=== PATIENT | female | born 1965 | race Caucasian/White ===

== ENCOUNTER 2017-07-02 10:41 | Emergency (ER) | payer BC ==
--- NOTE | 2017-07-02 13:35 | UC ---
Lower Extremity/Ankle HPI - HPI Summary HPI Summary: fell at 10:30 this am twisting right foot pain in lateral foot, ankle and distal fibula - History of Current Complaint Chief Complaint: UCLowerExtremity Stated Complaint: FOOT INJURY Time Seen by Provider: 07/02/17 13:29 Hx Obtained From: Patient Hx Last Menstrual Period: Currently menstruatubg ?: No Onset/Duration: Sudden Onset, Lasting Hours Severity Initially: Moderate Severity Currently: Moderate Pain Intensity: 8 Aggravating Factor(s): Standing, Ambulation Alleviating Factor(s): Rest, Elevation Able to Bear Weight: No Related History: Occupational Injury - Allergies/Home Medications Allergies/Adverse Reactions: Allergies Allergy/AdvReac Type Severity Reaction Status Date / Time tramadol Allergy See Comment Verified 07/02/17 12:26 PMH/Surg Hx/FS Hx/Imm Hx Previously Healthy: No - Chronic pain - Surgical History Surgical History: Yes Surgery Procedure, Year, and Place: Appendectomy. left ovarian cyst removed. scopy x2 bilateral knees - Family History Known Family History: Positive: Cardiac Disease, Hypertension, Diabetes - Social History Occupation: Employed Full-time Lives: With Family Alcohol Use: Rare Substance Use Type: None Smoking Status (MU): Light Every Day Tobacco Smoker Type: Cigarettes Amount Used/How Often: 1/2 ppd Length of Time of Smoking/Using Tobacco: 30 years Have You Smoked in the Last Year: Yes When Did the Patient Quit Smoking/Using Tobacco: hasn't smoked in last 2 days Household Exposure Type: Cigarettes - Immunization History Most Recent Influenza Vaccination: no Most Recent Tetanus Shot: unknown Most Recent Pneumonia Vaccination: no Hx Tetanus, Diphtheria Vaccination: Yes Vaccination Up to Date: No Review of Systems Constitutional: Negative Skin: Negative Eyes: Negative ENT: Negative Respiratory: Negative Cardiovascular: Negative Gastrointestinal: Negative Genitourinary: Negative Motor: Negative Neurovascular: Negative Musculoskeletal: Arthralgia - lateral right foot and ankle, distal fibula Neurological: Negative Psychological: Negative Is Patient Immunocompromised?: No All Other Systems Reviewed And Are Negative: Yes Physical Exam Triage Information Reviewed: Yes Appearance: Well-Appearing, Well-Nourished, Pain Distress - mild Vital Signs: Initial Vital Signs Temp 98.3 F 07/02/17 12:21 Pulse 92 07/02/17 12:21 Resp 18 07/02/17 12:21 BP 110/73 07/02/17 12:21 Pulse Ox 99 07/02/17 12:21 Vital Signs Reviewed: Yes Eye Exam: Normal Eyes: Positive: Conjunctiva Clear ENT Exam: Normal ENT: Positive: Normal ENT inspection, Hearing grossly normal. Negative: Nasal congestion, Tonsillar exudate, Trismus, Muffled voice, Hoarse voice Dental Exam: Normal Neck exam: Normal Neck: Positive: Supple, Nontender Respiratory Exam: Normal Respiratory: Positive: Chest non-tender, No respiratory distress, No accessory muscle use Cardiovascular Exam: Normal Cardiovascular: Positive: RRR, Pulses Normal, Brisk Capillary Refill Musculoskeletal Exam: Other Musculoskeletal: Positive: Strength Limited @ - right ankle, ROM Limited @ - right ankle, Edema @ - lateral right foot ankle Neurological Exam: Normal Neurological: Positive: Alert, Muscle Tone Normal Psychological Exam: Normal Skin Exam: Normal Diagnostics - Radiology No standard instances Xray Interpretation: No Acute Changes Radiology Interpretation Completed By: ED Physician, Radiologist Lower Extremity Course/Dx - Course Course Of Treatment: cam boot cruches, ibuprofen tylenol with Codiene, follow with ortho - Differential Dx/Diagnosis Provider Diagnoses: Right ankle sprain Discharge - Discharge Plan Condition: Stable Disposition: HOME Prescriptions: Acetaminop/Codeine 30 MG TAB* [Tylenol/Codeine 30 MG TAB*] 1 - 2 tab PO Q6H PRN #20 tab MDD 6 PRN Reason: Pain - Moderate To Severe Ibuprofen TAB* [Motrin TAB* 600 MG] 600 mg PO Q6H PRN #40 tab PRN Reason: Pain - Mild To Moderate Patient Education Materials: Ankle Sprain (ED), Crutch Instructions (ED), R.I.C.E. Treatment (ED) Forms: *Work Release Referrals: Beni Cronin MD [Medical Doctor] - 4 Days
[2017-07-02] MEDS ORDERED: Ibuprofen TAB* 600 MG PO ONE (13:36)
--- NOTE | 2017-07-02 14:14 | RAD ---
INDICATION: Swelling and pain over the right lateral malleolus after fall injury COMPARISON: None. TECHNIQUE: 2 views of the right lower leg, 3 views of the right ankle and 3 views of the right foot were obtained. FINDINGS: The bones are normal alignment. Joint spaces appear maintained. No fracture is seen. IMPRESSION: NO RADIOGRAPHICALLY APPARENT FRACTURE OR DISLOCATION INVOLVING THE RIGHT LOWER LEG, ANKLE OR FOOT. If the patient's symptoms persist, follow-up imaging is recommended.
[2017-07-02 14:35] VITALS: BP 108/71
== END 2017-07-02 14:55 | disposition home or self-care (01) ==
LOC: UCEAST 10:41
DX: S93.401A Sprain of unspecified ligament of right ankle, initial encounter (principal); X50.1XXA Overexertion from prolonged static or awkward postures, initial encounter; Y92.9 Unspecified place or not applicable; F17.210 Nicotine dependence, cigarettes, uncomplicated; G89.29 Other chronic pain
CPT/HCPCS: 99213; A9270-GY; G0463

== ENCOUNTER 2018-04-07 05:49 | Inpatient (IN) | payer BC, OTHER ==
[~2018-04-07 05:49] MED LIST: Buffered Lidocaine 0.9% SYRIN* 5 ML/SYR SYRINGE INTRADERM ONE
[2018-04-07] MEDS ORDERED: Sodium Citrate/Citric Acid* 15 ML UDC PO ONE (06:00)
[2018-04-07] MEDS ORDERED: ceFAZolin 2 GM PREMIX in ORs 2 GM/50 ML BAG IVPB ONE (06:13)
[2018-04-07] MEDS ORDERED: Sodium Citrate/Citric Acid* 15 ML UDC ONE (06:13)
[2018-04-07] MEDS ORDERED: Dexamethasone IV* 4 MG/ML 1 ML (4 MG) ONE (06:13)
[2018-04-07] MEDS ORDERED: Scopolamine 1.5 mg* PATCH ONE (06:13)
[2018-04-07] MEDS ORDERED: Heparin VIAL(*) 5000 UNITS/ML VIAL (FIVE THOUSAND) ONE (06:13)
[2018-04-07] MEDS ORDERED: Ondansetron INJ* 2 MG/ML VIAL ONE (06:13)
[2018-04-07] MEDS ORDERED: Midazolam* 1 MG/ML 2 ML VIAL (2 MG) ONE (07:23)
[2018-04-07] MEDS ORDERED: Propofol* 10 MG/ML 20 ML BTL IV PUSH ONE (07:23)
[2018-04-07] MEDS ORDERED: fentaNYL* 50 MCG/ML 2 ML VIAL (100 MCG VIAL) ONE ×6 (07:23→14:05)
[2018-04-07] MEDS ORDERED: Lidocaine 2% PF * 5 ML VIAL ONE (07:24)
[2018-04-07] MEDS ORDERED: Rocuronium* 10 MG/ML VIAL ONE (07:24)
[2018-04-07] MEDS ORDERED: Methylene Blue 0.5 %* 50 MG/10 ML AMP IV ONE (08:10)
[2018-04-07] MEDS ORDERED: Cisatracurium* 2 MG/ML MDV 5 ML ONE (09:30)
[2018-04-07] MEDS ORDERED: Neostigmine Methylsulfate* 2 MG/2 ML SYRINGE ONE (10:29)
[2018-04-07] MEDS ORDERED: Glycopyrrolate IV* 0.2 MG/ML 1 ML VIAL ONE (10:29)
[2018-04-07] MEDS ORDERED: Naloxone* 0.4 MG/ML 1 ML VIAL IV PRN (11:29)
[2018-04-07] MEDS: fentaNYL* 50 MCG/ML 2 ML VIAL (100 MCG VIAL) IV PRN ×5 (11:30→14:06)
[2018-04-07] MEDS ORDERED: Ondansetron INJ* 2 MG/ML VIAL IV PRN (11:34)
[2018-04-07] MEDS ORDERED: Al Hydrox/Mg Hydrox/Simet LIQ* 30 ML UDC PO PRN (11:34)
[2018-04-07] MEDS ORDERED: Magnesium Hydroxide LIQ* 30 ML UDC PO PRN (11:34)
[2018-04-07] MEDS ORDERED: diPHENhydraMINE PO* 25 MG PO PRN ×2 (11:34→11:48)
[2018-04-07] MEDS ORDERED: Acetaminophen TAB* 325 MG PO PRN (11:34)
[2018-04-07] MEDS ORDERED: oxyCODONE/Acetamin 5/325 MG* TAB PO PRN (11:34)
[2018-04-07] MEDS ORDERED: oxyCODONE/Acetamin 5/325 MG* TAB ONE (12:16)
[2018-04-07] MEDS: oxyCODONE/Acetamin 5/325 MG* TAB PO PRN ×3 (12:17→20:54)
[2018-04-07] MEDS ORDERED: HYDROmorphone INJ1* 1 MG/ML SYRINGE ONE (14:56)
[2018-04-07] MEDS: HYDROmorphone INJ1* 1 MG/ML SYRINGE IV PRN ×3 (16:16→21:34)
[2018-04-07] MEDS: NS 0.9% 1000 ML* 1,000 ML IV SCH (16:16)
[2018-04-07] MEDS: Docusate CAP* 100 MG PO SCH (20:57)
[2018-04-07] MEDS: Heparin VIAL(*) 5000 UNITS/ML VIAL (FIVE THOUSAND) SUBCUT SCH (21:33)
[2018-04-07] MEDS ORDERED: oxyCODONE TAB* 5 MG TAB PO PRN ×2 (22:59→23:00)
[2018-04-08] MEDS: HYDROmorphone INJ1* 1 MG/ML SYRINGE IV PRN ×3 (00:02→07:12)
[2018-04-08] MEDS: oxyCODONE/Acetamin 5/325 MG* TAB PO PRN ×2 (04:29→09:29)
[2018-04-08] MEDS: NS 0.9% 1000 ML* 1,000 ML IV SCH (05:33)
[2018-04-08] MEDS: Heparin VIAL(*) 5000 UNITS/ML VIAL (FIVE THOUSAND) SUBCUT SCH (05:34)
[2018-04-08 08:04] VITALS: BP 104/61
[2018-04-08] MEDS ORDERED: ESTROGENS PO SCH (09:00)
[2018-04-08] MEDS ORDERED: MEDROXYPR PO SCH (09:00)
[2018-04-08] MEDS: Docusate CAP* 100 MG PO SCH (09:29)
== END 2018-04-08 11:10 | disposition home or self-care (01) | DRG 581 ==
LOC: OR 05:49 → SSU 16:04
PROVIDERS: ADMIT Plastic Surgery; ATTEND Plastic Surgery
PROC: 0W0F0ZZ Alteration of Abdominal Wall, Open Approach (ICD-10-PCS; principal; 2018-04-07 07:30)
DX: Z41.1 Encounter for cosmetic surgery (principal); L57.4 Cutis laxa senilis; M54.5 Low back pain; M51.37 Other intervertebral disc degeneration, lumbosacral region; Z79.891 Long term (current) use of opiate analgesic; Z79.899 Other long term (current) drug therapy; Z87.891 Personal history of nicotine dependence; Z83.3 Family history of diabetes mellitus; Z82.49 Family history of ischemic heart disease and other diseases of the circulatory system
CPT/HCPCS: 81025; 93005; A9270-GY; J0690; J1100; J1170; J1644; J2250; J2405; J2704; J3010

== ENCOUNTER 2018-12-16 20:19 | Emergency (ER) | payer BC, OTHER ==
[2018-12-16] MEDS ORDERED: Aspirin 81 mg CHEW TAB* 81 MG TAB.CHEW PO ONE (21:03)
[2018-12-16] MEDS ORDERED: oxyCODONE/Acetamin 5/325 MG* TAB PO ONE (21:04)
--- NOTE | 2018-12-16 21:16 | ED ---
HPI Chest Pain - HPI Summary HPI Summary: The pt is a 53 yr old female presenting to the [facility] via EMS c/o chest pain that radiates to her back beginning 1.5 hours [employer]. She states suddenly feeling pain in her left upper chest but denies having experienced these symptoms ever before. Her pain is still present but has lessened since its onset and she currently rates it a 3/10 in severity. The pain is aggravated when taking deep breaths. She also reports dizziness and nausea. EMS administered ASA 325 mg, NTG x2, and Zofran 4mg. She is a former smoker, denies Hx of DM, and has FMHx of CHF, HTN, and cardiac disease. - History of Current Complaint Chief Complaint: EDChestWallPain Time Seen by Provider: 12/16/18 20:24 Hx Obtained From: Patient Hx Last Menstrual Period: Currently menstruatubg Onset/Duration: Started Hours Ago, Still Present Time of Onset: 19:30 Timing: Constant, Lasting Hours Current Severity: Mild - 3/10 Pain Intensity: 3 Pain Scale Used: 0-10 Numeric Chest Pain Location: Left Anterior Chest Pain Radiates: Yes Chest Pain Radiates To:: Back Aggravating Factor(s): Deep Breaths Associated Signs and Symptoms: Positive: Chest Pain, Dizziness, Nausea - Additional Pertinent History Primary Care Physician: MILENA - Allergy/Home Medications Allergies/Adverse Reactions: Allergies Allergy/AdvReac Type Severity Reaction Status Date / Time tramadol Allergy Intermediate See Comment Verified 12/16/18 20:37 PMH/Surg Hx/FS Hx/Imm Hx Endocrine/Hematology History: Denies: Hx Diabetes, Hx Thyroid Disease Cardiovascular History: Denies: Hx Congestive Heart Failure, Hx Hypertension, Hx Pacemaker/ICD, Other Cardiovascular Problems/Disorders Respiratory History: Denies: Hx Asthma, Hx Chronic Obstructive Pulmonary Disease (COPD), Other Respiratory Problems/Disorders GI History: Denies: Hx Ulcer, Other GI Disorders History: Reports: Hx Kidney Infection Denies: Hx Renal Disease, Other Problems/Disorders Musculoskeletal History: Reports: Hx Arthritis - osteoarthritis, Hx Osteoporosis , Other Musculoskeletal History - Osteoporosis Sensory History: Reports: Hx Contacts or Glasses Denies: Hx Hearing Aid Opthamlomology History: Reports: Hx Contacts or Glasses Neurological History: Denies: Other Neuro Impairments/Disorders Psychiatric History: Denies: Hx Panic Disorder, Other Psychiatric Issues/Disorders - Surgical History Surgery Procedure, Year, and Place: Appendectomy. left ovarian cyst removed. scopy x2 bilateral knees Hx Anesthesia Reactions: No Infectious Disease History: No Infectious Disease History: Denies: Hx Clostridium Difficile, Hx Hepatitis, Hx Human Immunodeficiency Virus (HIV), Hx of Known/Suspected MRSA, Hx Shingles, Hx Tuberculosis, Hx Known/ Suspected VRE, Hx Known/Suspected VRSA, History Other Infectious Disease, Traveled Outside the [place] in Last 30 Days - Family History Known Family History: Positive: Cardiac Disease, Hypertension, Diabetes - Social History Alcohol Use: None Alcohol Amount: 2 drinks Substance Use Type: Reports: None Substance Use Comment - Amount & Last Used: 6-8 cups per day Hx Tobacco Use: Yes - 1/2 PACK /DAY Smoking Status (MU): Light Every Day Tobacco Smoker Type: Cigarettes Amount Used/How Often: 1/2 ppd Length of Time of Smoking/Using Tobacco: 30 years Have You Smoked in the Last Year: Yes Review of Systems Positive: Chest Pain Positive: Nausea Neurological: Other - Positive - Dizziness All Other Systems Reviewed And Are Negative: Yes Physical Exam - Summary Physical Exam Summary: VITAL SIGNS: Reviewed. GENERAL: Patient is a well-developed and nourished female who is lying comfortable in the stretcher. Patient is not in any acute respiratory distress. HEAD AND FACE: No signs of trauma. No ecchymosis, hematomas or skull depressions. No sinus tenderness. EYES: PERRLA, EOMI x 2, No injected conjunctiva, no nystagmus. EARS: Hearing grossly intact. Ear canals and tympanic membranes are within normal limits. MOUTH: Oropharynx within normal limits. NECK: Supple, trachea is midline, no adenopathy, no JVD, no carotid bruit, no c- spine tenderness, neck with full ROM CHEST: Symmetric, point tenderness at the left chest wall. All else normal. LUNGS: Clear to auscultation bilaterally. No wheezing or crackles. CVS: Regular rate and rhythm, S1 and S2 present, no murmurs or gallops appreciated. ABDOMEN: Soft, non-tender. No signs of distention. No rebound no guarding, and no masses palpated. Bowel sounds are normal. EXTREMITIES: FROM in all major joints, no edema, no cyanosis or clubbing. NEURO: Alert and oriented x 3. No acute neurological deficits. Speech is normal and follows commands. SKIN: Dry and warm Triage Information Reviewed: Yes Vital Signs On Initial Exam: Initial Vitals Resp 15 12/16/18 20:31 Vital Signs Reviewed: Yes Diagnostics - Vital Signs Vital Signs Temp Pulse Resp BP Pulse Ox 12/16/18 21:02 86 10 114/73 96 12/16/18 21:00 85 13 97 12/16/18 20:32 97.6 F 85 16 111/74 96 12/16/18 20:31 15 - Laboratory Result Diagrams: 12/16/18 21:27 12/16/18 21:27 Lab Statement: Any lab studies that have been ordered have been reviewed, and results considered in the medical decision making process. - Radiology CXR Radiology Interpretation Completed By: ED Physician Summary of Radiographic Findings: No acute processes, pending official report. - EKG EKG Cardiac Rate: NL - 88 BPM EKG Rhythm: Sinus Rhythm ST Segment: Normal Summary of EKG Findings: sinus rhythm @ 88 BPM, Q wave in inferior leads, and no difference from prior EKG at 04/07/2018 Chest Pain Course/Dx - Course Course Of Treatment: The pt is a 53 yr old female presenting [facility] c/o chest pain that radiates to her back. She states suddenly starting to feel pain in her left upper chest and reports both dizziness and nausea. She is a former smoker, denies Hx of DM, and has Fhx of CHF, HTN, and cardiac disease. An EKG reveals sinus rhythm @ 88 BPM, Q wave in inferior leads, and no difference from prior EKG at 04/07/2018. CXR reveals no acute process, pending official report. Test results with no significant abnormalities expect for RBC @ 3.5, Hgb @ 11.7 , MCV @ 99, MCH @ 33, Potassium @ 3.3, Carbon Dioxide @ 21, Creatinine @ 0.47, BUN/Creatinine @ 40.4, Calcium @ 8.1, and Total Protein @ 6.1.In the ED course the patient was given 1 tab Percocet 5/325 PO and 40 meq Potassium Chloride PO. Patient was discharged to home and instructed to follow up with PCP and card feeder within three days for outpatient stress test. The patient is agreeable with this plan. - Diagnoses Provider Diagnoses: Atypical chest pain Discharge - Sign-Out/Discharge Documenting (check all that apply): Patient Departure - Discharged. Patient Received Moderate/Deep Sedation with Procedure: No - Discharge Plan Condition: Stable Disposition: HOME Patient Education Materials: Chest Pain (ED) Referrals: Efe Rodriguez MD [Medical Doctor] - 3 Days Armando Warren MD [Primary Care Provider] - 3 Days Additional Instructions: RETURN TO ED FOR ANY NEW OR WORSENING SYMPTOMS. FOLLOW UP WITH YOUR PRIMARY CARE PHYSICIAN AND PER DIEM NURSE. WITHIN THREE DAYS. GET AN OUTPATIENT STRESS TEST. - Attestation Statements Document Initiated by Scribe: Yes Documenting Scribe: GREG ELLIOTT Provider For Whom Scribe is Documenting (Include Credential): MARIANO CAMP MD Scribe Attestation: I, GREG ELLIOTT, scribed for MARIANO CAMP MD on 12/17/18 at 0220. Status of Scribe Document: Ready
[2018-12-16 21:44] LABS: ABS Eosinophils 0.1 10^3/ul (0-0.6); ABS Lymphocytes 4.1 10^3/ul (1.0-4.8); ABS Monocytes 0.5 10^3/ul (0-0.8); ABS Neutrophils 5.8 10^3/ul (1.5-7.7); Hematocrit 35 % (35-47); Hemoglobin 11.7 g/dL (12.0-16.0); Lymphocyte % 39.2 %; Mean Corpuscular HGB Conc 34 g/dL (31-36); Mean Corpuscular Hemoglobin 33 pg (27-31); Mean Corpuscular Volume 99 fL (80-97); Nucleated Red Blood Cells % 0.1; Platelet Count 211 10^3/uL (150-450); Red Cell Distribution Width 13 % (10-15); White Blood Count 10.6 10^3/uL (3.5-10.8)
[2018-12-16 21:59] LABS: Activated Partial Thrombo Time 29.5 seconds (26.0-38.0)
[2018-12-16 22:01] LABS: Albumin 3.9 g/dL (3.2-5.2); Albumin/Globulin Ratio 1.8 (1-3); BUN/Creatinine Ratio 40.4 (8-20); Calcium 8.1 mg/dL (8.6-10.3); EGFR Non-African American 139.7 (>60); Globulin 2.2 g/dL (2-4); Magnesium 1.9 mg/dL (1.9-2.7); Potassium 3.3 mmol/L (3.5-5.0); Total Bilirubin 0.2 mg/dL (0.2-1.0); Total Protein 6.1 g/dL (6.4-8.9)
[2018-12-16] MEDS ORDERED: Potassium Chlor TAB* 20 MEQ TAB.ER PO ONE (22:14)
[2018-12-17 02:07] VITALS: BP 95/57
== END 2018-12-17 02:08 | disposition home or self-care (01) ==
LOC: ED 20:19
DX: R07.89 Other chest pain (principal); Z88.5 Allergy status to narcotic agent; Z87.891 Personal history of nicotine dependence
CPT/HCPCS: 36415; 71045; 80053; 83735; 83880; 84484; 85025; 85379; 85610; 85730; 93005; 99283; A9270-GY

== ENCOUNTER 2019-08-08 08:26 | Emergency (ER) | payer BC ==
[2019-08-08] MEDS ORDERED: Cefepime(*) 2 GM in NS 0.9% 50 ML* 50 ML IVPB ONE (09:31)
[2019-08-08] MEDS ORDERED: NS 0.9% 1000 ML** 1,000 ML IV ONE (09:34)
[2019-08-08] MEDS ORDERED: Ketorolac INJ* 30 MG/ML 1 ML VIAL IV ONE (09:34)
[2019-08-08] MEDS ORDERED: NS 0.9% 50 ML* 50 ML ONE (09:42)
[2019-08-08] MEDS ORDERED: Cefepime 2 GM in Dextrose(*) 0 GM/0 ML BAG IV ONE (09:44)
[2019-08-08] MEDS ORDERED: NS 0.9% 250 ML* 250 ML ONE (09:49)
[2019-08-08 09:55] LABS: ABS Basophils 0.1 10^3/ul (0-0.2); ABS Eosinophils 0.1 10^3/ul (0-0.6); ABS Lymphocytes 2.1 10^3/ul (1.0-4.8); ABS Monocytes 0.9 10^3/ul (0-0.8); Eosinophil % 1.1 %; Hematocrit 36 % (35-47); Hemoglobin 12.3 g/dL (12.0-16.0); Lymphocyte % 22.7 %; Mean Corpuscular HGB Conc 34 g/dL (31-36); Mean Corpuscular Hemoglobin 34 pg (27-31); Mean Corpuscular Volume 101 fL (80-97); Mean Platelet Volume 7.5 fL (7.4-10.4); Platelet Count 259 10^3/uL (150-450); Red Blood Count 3.62 10^6 /uL (3.70-4.87); Red Cell Distribution Width 14 % (10-15); White Blood Count 9.1 10^3/uL (3.5-10.8)
[2019-08-08] MEDS ORDERED: Cefepime 2 GM in Dextrose(*) 2 GM/50 ML BAG IV ONE (10:00)
[2019-08-08] MEDS ORDERED: Vancomycin 1500 MG IV - x ONCE IVPB ONE ×2 (10:00)
[2019-08-08] MEDS ORDERED: Vancomycin(*) 1,000 MG VIAL IVPB SCH (10:00)
[2019-08-08 10:11] LABS: Albumin 3.9 g/dL (3.2-5.2); Albumin/Globulin Ratio 1.4 (1-3); BUN/Creatinine Ratio 38.1 (8-20); C Reactive Protein 78.49 mg/L (<8.01); Calcium 8.9 mg/dL (8.6-10.3); EGFR African American 191.7 (>60); EGFR Non-African American 158.4 (>60); Globulin 2.8 g/dL (2-4); Potassium 4.4 mmol/L (3.5-5.0); Total Bilirubin 0.2 mg/dL (0.2-1.0); Total Protein 6.7 g/dL (6.4-8.9)
[2019-08-08] MEDS ORDERED: Iohexol 300* (CONTRAST) 10 ML SDV IV ONE (10:16)
--- NOTE | 2019-08-08 10:41 | ED ---
Skin Complaint - HPI Summary HPI Summary: Patient is a 54-year-old female presenting to the ED with chief complaint of erythema and swelling to the chin. Patient had a small pimple to the right side of the chin, states she shaved the area and the area began to be red with slight draining. Since yesterday, the area has been getting bigger and more swollen. Endorses 10/10 pain to the area, difficulty swallowing, pain to the R ear and jaw, unable to open mouth and concern for airway restrictions. Denies SOB or CP. Denies fevers, sweats or chills. States she is unable to touch any area of her face without severe pain. No hx of sepsis or cellulitis. No eye involvement, no photophobia, neck tenderness or MCGRAW. - History of Current Complaint Chief Complaint: EDRashSkinAbscess Time Seen by Provider: 08/08/19 08:46 Stated Complaint: CHIN/NECK INFECTION PER PT Hx Obtained From: Patient Hx Last Menstrual Period: Currently menstruatubg Onset/Duration: Started Hours Ago, Started Days Ago Skin Exposure Onset/Duration: Hours Ago, Days Ago Onset Severity: Severe Current Severity: Severe Pain Intensity: 10 Pain Scale Used: 0-10 Numeric Skin Location: Other: - right side of chin and R cheek/jaw/ear Aggravating Symptom(s): Nothing Alleviating Symptom(s): Nothing Associated Signs & Symptoms: Negative - Additional Pertinent History Primary Care Physician: MILENA - Allergy/Home Medications Allergies/Adverse Reactions: Allergies Allergy/AdvReac Type Severity Reaction Status Date / Time tramadol Allergy Intermediate See Comment Verified 08/08/19 08:38 Home Medications: Home Medications Oxycodone TAB(NF) [Oxycodone HCl 10 MG] 20 mg PO TID PRN 03/31/18 [History Confirmed 08/08/19] Ketorolac TAB * [Toradol TAB *] 10 mg PO Q6H #16 tab 08/08/19 [Rx] Sulfamethox/Trimethoprim DS* [Bactrim DS 800/160 TAB*] 1 tab PO BID #14 tab 03/19 [Rx] PMH/Surg Hx/FS Hx/Imm Hx Previously Healthy: Yes Endocrine/Hematology History: Denies: Hx Diabetes, Hx Thyroid Disease Cardiovascular History: Reports: Hx Angina, Hx Valvular Heart Disease - she states possible Mitral prolapse Denies: Hx Congestive Heart Failure, Hx Coronary Artery Disease, Hx Hypercholesterolemia, Hx Hypertension, Hx Pacemaker/ICD, Other Cardiovascular Problems/Disorders Respiratory History: Denies: Hx Asthma, Hx Chronic Obstructive Pulmonary Disease (COPD), Other Respiratory Problems/Disorders GI History: Denies: Hx Ulcer, Other GI Disorders History: Reports: Hx Kidney Infection Denies: Hx Chronic Renal Failure, Hx Dialysis, Hx Renal Disease, Other Problems/Disorders Musculoskeletal History: Reports: Hx Arthritis - osteoarthritis, Hx Osteoporosis , Other Musculoskeletal History - Osteoporosis Sensory History: Reports: Hx Contacts or Glasses Denies: Hx Hearing Aid Opthamlomology History: Reports: Hx Contacts or Glasses Neurological History: Denies: Other Neuro Impairments/Disorders Psychiatric History: Denies: Hx Panic Disorder, Other Psychiatric Issues/Disorders - Surgical History Surgery Procedure, Year, and Place: Appendectomy. left ovarian cyst removed. scopy x2 bilateral knees Hx Anesthesia Reactions: No - Immunization History Hx Pertussis Vaccination: No Immunizations Up to Date: Yes Infectious Disease History: No Infectious Disease History: Denies: Hx Clostridium Difficile, Hx Hepatitis, Hx Human Immunodeficiency Virus (HIV), Hx of Known/Suspected MRSA, Hx Shingles, Hx Tuberculosis, Hx Known/ Suspected VRE, Hx Known/Suspected VRSA, History Other Infectious Disease, Traveled Outside the [place] in Last 30 Days - Family History Known Family History: Positive: Cardiac Disease, Hypertension, Diabetes - Social History Occupation: Employed Full-time Lives: With Family Alcohol Use: Rare Alcohol Amount: 2 drinks Hx Substance Use: No Substance Use Type: Reports: None Substance Use Comment - Amount & Last Used: 6-8 cups per day Hx Tobacco Use: Yes - 1/2 PACK /DAY Smoking Status (MU): Light Every Day Tobacco Smoker Type: Cigarettes Amount Used/How Often: 1/2 ppd Length of Time of Smoking/Using Tobacco: 30 years Have You Smoked in the Last Year: Yes Review of Systems Negative: Fever, Chills, Fatigue, Skin Diaphoresis Positive: Ear Ache Negative: Palpitations, Chest Pain Negative: Shortness Of Breath, Cough Genitourinary: Negative Positive: no symptoms reported, see HPI Negative: Arthralgia, Myalgia Neurological/Mental Status: Negative Positive: Headache All Other Systems Reviewed And Are Negative: Yes Physical Exam Triage Information Reviewed: Yes Vital Signs On Initial Exam: Initial Vitals Temp Pulse Resp BP Pulse Ox 97.7 F 90 14 125/94 99 08/08/19 08:34 08/08/19 08:34 08/08/19 08:34 08/08/19 08:34 08/08/19 08:34 Vital Signs Reviewed: Yes Appearance: Positive: Well-Nourished, Ill-Appearing, Pain Distress Skin: Positive: Warm, Skin Color Reflects Adequate Perfusion, Other - erythema to the R side of the chin with 2 small areas of previous drainage Neck: Positive: Supple, Nontender, No Lymphadenopathy Respiratory/Lung Sounds: Positive: Clear to Auscultation, Breath Sounds Present Cardiovascular: Positive: RRR, Pulses are Symmetrical in both Upper and Lower Extremities Musculoskeletal: Positive: Normal, Strength/ROM Intact Neurological: Positive: Speech Normal Psychiatric: Positive: Affect/Mood Appropriate AVPU Assessment: Alert Procedures - Sedation Patient Received Moderate/Deep Sedation with Procedure: No Diagnostics - Vital Signs Vital Signs Temp Pulse Resp BP Pulse Ox 08/08/19 09:53 82 135/66 96 08/08/19 09:39 89 98 08/08/19 08:34 97.7 F 90 14 125/94 99 - Laboratory Lab Results: Lab Results 08/08/19 08/08/19 Range/Units 09:41 09:41 WBC 9.1 (3.5-10.8) 10^3/uL RBC 3.62 L (3.70-4.87) 10^6 /uL Hgb 12.3 (12.0-16.0) g/dL Hct 36 (35-47) % MCV 101 H (80-97) fL MCH 34 H (27-31) pg MCHC 34 (31-36) g/dL RDW 14 (10-15) % Plt Count 259 (150-450) 10^3/uL MPV 7.5 (7.4-10.4) fL Neut % (Auto) 65.3 % Lymph % (Auto) 22.7 % [place] % (Auto) 10.0 % Eos % (Auto) 1.1 % Baso % (Auto) 0.9 % Absolute Neuts (auto) 6.0 (1.5-7.7) 10^3/ul Absolute Lymphs (auto) 2.1 (1.0-4.8) 10^3/ul Absolute Monos (auto) 0.9 H (0-0.8) 10^3/ul Absolute Eos (auto) 0.1 (0-0.6) 10^3/ul Absolute Basos (auto) 0.1 (0-0.2) 10^3/ul Absolute Nucleated RBC 0.0 10^3/ul Nucleated RBC % 0.0 ESR Pending Sodium 137 (135-145) mmol/L Potassium 4.4 (3.5-5.0) mmol/L Chloride 106 (101-111) mmol/L Carbon Dioxide 24 (22-32) mmol/L Anion Gap 7 (2-11) mmol/L BUN 16 (6-24) mg/dL Creatinine 0.42 L (0.51-0.95) mg/dL Est GFR ( Amer) 191.7 (>60) Est GFR (Non-Af Amer) 158.4 (>60) BUN/Creatinine Ratio 38.1 H (8-20) Glucose 97 (70-100) mg/dL Calcium 8.9 (8.6-10.3) mg/dL Total Bilirubin 0.20 (0.2-1.0) mg/dL AST 15 (13-39) U/L ALT 12 (7-52) U/L Alkaline Phosphatase 64 (34-104) U/L C-Reactive Protein 78.49 H (<8.01) mg/L Total Protein 6.7 (6.4-8.9) g/dL Albumin 3.9 (3.2-5.2) g/dL Globulin 2.8 (2-4) g/dL Albumin/Globulin Ratio 1.4 (1-3) Result Diagrams: 08/08/19 09:41 08/08/19 09:41 Lab Statement: Any lab studies that have been ordered have been reviewed, and results considered in the medical decision making process. Course/Dx - Course Course Of Treatment: On physical examination, patient has a significant amount of swelling to the right side of the chin with erythema, warmth and 2 areas of what appear to be pimples which have drained. None currently. Swelling is diffuse and even without evidence of a pocket of abscess for I and D. Unable to palpate at the chin or the cheek/jaw/ear d/t severe pain. No obvious swelling to the throat or the tongue. She does have trimus -limitations with jaw movement - d/t pain. Difficulty swallowing, but states continues to be able to do so as well as swallow secretions. Does not appear to have any airway compromise, no muffled voice, drooling, tripoding or voice changes. No eye involvement, entrapment or swelling around the eye. Lungs cta, rrr. VS stable, afebrile. Labs show normal white count with an elevated CRP at 78. Pt given vancomycin and cefepime to cover strep, MSSA, MRSA pathogens. 1L NS given. Toradol 30mg IV. No drainage to culture at this time. Afebrile, so no blood cultures obtained. D/t severe tenderness, difficulty swallowing and swelling to the R side of the face, CT maxillofacial was obtained. Pt states worsening swelling and inability to swallow - benadryl ordered. Pt refused. Continues to feel she is unable to swallow and there is swelling in her throat. Soft tissue neck obtained which is negative for acute findings. CT: IMPRESSION: 1. Facial cellulitis centered about the anterior right hemimandible. There is no organized fluid collection or CT evidence of osteomyelitis. No untreated dental or periodontal disease. 2. Suspected reactive cervical lymphadenopathy. Pt also given morphine per her request for severe pain. Pt will be dc'd with dx of cellulitis and will return for worsening symptoms. Rx bactrim and toradol for pain and inflammation. - Differential Diagnoses - Skin Complaint Differential Diagnoses: Allergic Reaction, Cellulitis, Contact Dermatitis, Impetigo, Other - abscess, folliculitis - Diagnoses Provider Diagnoses: Facial cellulitis Discharge ED - Sign-Out/Discharge Documenting (check all that apply): Patient Departure - Discharge Plan Condition: Stable Disposition: HOME Prescriptions: Ketorolac TAB * [Toradol TAB *] 10 mg PO Q6H #16 tab Sulfamethox/Trimethoprim DS* [Bactrim DS 800/160 TAB*] 1 tab PO BID #14 tab Patient Education Materials: Cellulitis (ED) Referrals: Armando Warren MD [Primary Care Provider] - Additional Instructions: Bactrim twice daily - first dose this evening Toradol four times dialy - DO NOT USE OTHER NSAIDS WHILE TAKING THIS MEDICATIONS May use warm compresses to the area If an abscess/pimple develops - you can use heat and express the area as for the area to heal faster You can always return to the ED for any worsening symptoms - Billing Disposition and Condition Condition: STABLE Disposition: Home - Attestation Statements Provider Attestation: I was available for consultation for this patient. I did not evaluate the patient, or participate in any medical decision making or disposition decisions unless I am specifically named in the chart as having consulted on the patient. If I have consulted on the patient, please see my own ED note on the patient encounter. Nghia Castillo MD
[2019-08-08] MEDS ORDERED: diPHENhydraMINE IV* 50 MG/ML 1 ml VIAL (BENADRYL) IV ONE (10:42)
[2019-08-08 11:49] LABS: Erythrocyte Sed Rate 27 mm/Hr (0-29)
[2019-08-08] MEDS ORDERED: Morphine 4 MG/ML VIAL (1 ml) 4 MG/ML VIAL IV ONE (12:48)
[2019-08-08 13:48] VITALS: BP 120/64
== END 2019-08-08 13:47 | disposition home or self-care (01) ==
LOC: ED 08:26
DX: L03.211 Cellulitis of face (principal); R60.9 Edema, unspecified; F17.210 Nicotine dependence, cigarettes, uncomplicated; H92.09 Otalgia, unspecified ear; R51 Headache
CPT/HCPCS: 36415; 70360; 70487; 80053; 85025; 85652; 86140; 96365; 96367; 96375; 99282; J0692; J1200; J1885; J2270; J3370; Q9967

== ENCOUNTER 2019-08-09 14:07 | Emergency (ER) | payer BC ==
--- NOTE | 2019-08-09 15:47 | ED ---
Skin Complaint - HPI Summary HPI Summary: 54 year old F presenting to [facility] alone complains of worsening cellulitis since being diagnosed yesterday here at [facility]. Patient reports developing chills overnight and trouble swallowing. She had a fever 2 days ago which has since resolved. PMHx of osteoperosis and osteoarthritis. Allergy to tramadol noted. Patient reports being on oxycodone. The patient rates the pain 10/10 in severity. Symptoms aggravated by nothing. Symptoms alleviated by nothing. Medications reviewed. Allergies noted. Home Medications Medication Instructions Recorded Confirmed Type Oxycodone TAB(NF) [Oxycodone HCl 20 mg PO TID PRN 03/31/18 08/08/19 History 10 MG] Ketorolac TAB * [Toradol TAB *] 10 mg PO Q6H #16 tab 08/08/19 Rx Sulfamethox/Trimethoprim DS* 1 tab PO BID #14 tab 08/08/19 Rx [Bactrim DS 800/160 TAB*] - History of Current Complaint Chief Complaint: EDRashSkinAbscess Time Seen by Provider: 08/09/19 15:28 Stated Complaint: CHIN INFECTION PER PT Hx Obtained From: Patient Hx Last Menstrual Period: Currently menstruatubg Onset/Duration: Started Days Ago, Still Present Timing: Constant Pain Intensity: 10 Pain Scale Used: 0-10 Numeric Aggravating Symptom(s): Nothing Alleviating Symptom(s): Nothing Associated Signs & Symptoms: Chills - Additional Pertinent History Primary Care Physician: [id number] - Allergy/Home Medications Allergies/Adverse Reactions: Allergies Allergy/AdvReac Type Severity Reaction Status Date / Time tramadol Allergy Intermediate See Comment Verified 08/08/19 08:38 Home Medications: Home Medications Oxycodone TAB(NF) [Oxycodone HCl 10 MG] 20 mg PO TID PRN 03/31/18 [History Confirmed 08/08/19] Ketorolac TAB * [Toradol TAB *] 10 mg PO Q6H #16 tab 08/08/19 [Rx] Sulfamethox/Trimethoprim DS* [Bactrim DS 800/160 TAB*] 1 tab PO BID #14 tab 03/19 [Rx] Cephalexin CAP* [Keflex CAP*] 500 mg PO TID 7 Days #21 cap 08/09/19 [Rx] PMH/Surg Hx/FS Hx/Imm Hx Endocrine/Hematology History: Denies: Hx Diabetes, Hx Thyroid Disease Cardiovascular History: Reports: Hx Angina, Hx Valvular Heart Disease - she states possible Mitral prolapse Denies: Hx Congestive Heart Failure, Hx Coronary Artery Disease, Hx Hypercholesterolemia, Hx Hypertension, Hx Pacemaker/ICD, Other Cardiovascular Problems/Disorders Respiratory History: Denies: Hx Asthma, Hx Chronic Obstructive Pulmonary Disease (COPD), Other Respiratory Problems/Disorders GI History: Denies: Hx Ulcer, Other GI Disorders History: Reports: Hx Kidney Infection Denies: Hx Chronic Renal Failure, Hx Dialysis, Hx Renal Disease, Other Problems/Disorders Musculoskeletal History: Reports: Hx Arthritis - osteoarthritis, Hx Osteoporosis , Other Musculoskeletal History - Osteoporosis Sensory History: Reports: Hx Contacts or Glasses Denies: Hx Hearing Aid Opthamlomology History: Reports: Hx Contacts or Glasses Neurological History: Denies: Other Neuro Impairments/Disorders Psychiatric History: Denies: Hx Panic Disorder, Other Psychiatric Issues/Disorders - Surgical History Surgery Procedure, Year, and Place: Appendectomy. left ovarian cyst removed. scopy x2 bilateral knees Hx Anesthesia Reactions: No Infectious Disease History: No Infectious Disease History: Denies: Hx Clostridium Difficile, Hx Hepatitis, Hx Human Immunodeficiency Virus (HIV), Hx of Known/Suspected MRSA, Hx Shingles, Hx Tuberculosis, Hx Known/ Suspected VRE, Hx Known/Suspected VRSA, History Other Infectious Disease, Traveled Outside the [place] in Last 30 Days - Family History Known Family History: Positive: Cardiac Disease, Hypertension, Diabetes - Social History Alcohol Use: Rare Alcohol Amount: 2 drinks Hx Substance Use: No Substance Use Type: Reports: None Substance Use Comment - Amount & Last Used: 6-8 cups per day Hx Tobacco Use: Yes - 1/2 PACK /DAY Smoking Status (MU): Light Every Day Tobacco Smoker Type: Cigarettes Amount Used/How Often: 1/2 ppd Length of Time of Smoking/Using Tobacco: 30 years Have You Smoked in the Last Year: Yes Review of Systems Positive: Chills. Negative: Fever Positive: Other - trouble swallowing Positive: Other - cellulitis All Other Systems Reviewed And Are Negative: Yes Physical Exam - Summary Physical Exam Summary: Constitutional: Well-developed, Well-nourished, Alert. (-) Distressed Skin: Warm, Dry HENT: Right bever[place] with erythema and swelling. Tenderness. No buccal fluctuants. No submandibular or sublingual swelling. No pain with tracheal manipulation. Patient is tolerating secretions. Mild trismus. Eyes: Conjunctiva normal Neck: Musculoskeletal ROM normal neck. (-) JVD, (-) Stridor, (-) Tracheal deviation Cardio: Rhythm regular, rate normal, Heart sounds normal; Intact distal pulses; Radial pulses are 2+ and symmetric. (-) Murmur Pulmonary/Chest wall: Effort normal. (-) Respiratory distress, (-) Wheezes, (-) Rales Abd: Soft, (-) tenderness, (-) Distension, (-) Guarding, (-) Rebound Musculoskeletal: (-) Edema Lymph: (-) Cervical adenopathy Neuro: Alert, Oriented x3 Psych: Mood and affect Normal Triage Information Reviewed: Yes Vital Signs On Initial Exam: Initial Vitals Temp Pulse Resp BP Pulse Ox 98.2 F 99 18 115/82 99 08/09/19 14:11 08/09/19 14:11 08/09/19 14:11 08/09/19 14:11 08/09/19 14:11 Vital Signs Reviewed: Yes Procedures - Sedation Patient Received Moderate/Deep Sedation with Procedure: No Diagnostics - Vital Signs Vital Signs Temp Pulse Resp BP Pulse Ox 08/09/19 14:11 98.2 F 99 18 115/82 99 - Laboratory Lab Statement: Any lab studies that have been ordered have been reviewed, and results considered in the medical decision making process. Course/Dx - Course Course Of Treatment: Patient is here with cellulitis to her chin. Patient seen here yesterday where she received IV antibiotics and was discharged on Bactrim. During her stay here, patient had a CT scan of her maxillofacial and x-ray of her neck which showed no abscess, deep space infection, osteomyelitis. Patient is concerned as she thought her infection be much better by today. Patient has no signs of sepsis on exam or deep space infection. Patient has no drainable abscess. Patient had Keflex added for double coverage. Patient will follow up with her PCP on Wednesday - Diagnoses Provider Diagnoses: Cellulitis of chin Discharge ED - Sign-Out/Discharge Documenting (check all that apply): Patient Departure - discharge - Discharge Plan Condition: Stable Disposition: HOME Prescriptions: Cephalexin CAP* [Keflex CAP*] 500 mg PO TID 7 Days #21 cap Patient Education Materials: Cellulitis (ED) Referrals: Armando Warren MD [Primary Care Provider] - 2 Days Additional Instructions: Start your newly prescribed antiobotic. Take you already prescribed pain medications. Follow up with you PCP on Wednesday as scheduled. Call the ambulance if you have difficulty swallowing or if redness tracks under your chin. - Billing Disposition and Condition Condition: STABLE Disposition: Home - Attestation Statements Document Initiated by Osorioibe: Yes Documenting Scribe: Franco Joe Provider For Whom Osorioibe is Documenting (Include Credential): Dr.Keith Farooq Huitron MD Scribe Attestation: IFranco, scribed for Dr.Keith Farooq Huitron MD on 08/09/19 at 1821. Scribe Documentation Reviewed: Yes Provider Attestation: The documentation as recorded by the Franco light accurately reflects the service I personally performed and the decisions made by me, Dr.Keith Farooq Huitron MD Status of Scribe Document: Viewed
[2019-08-09] MEDS ORDERED: HYDROcodone/ACETAMIN 5-325 MG* 1 TAB PO ONE (15:48)
[2019-08-09] MEDS ORDERED: Cephalexin CAP* 500 MG PO ONE (16:17)
[2019-08-09] MEDS ORDERED: Cephalexin CAP* 500 MG ONE (16:30)
[2019-08-09 16:41] VITALS: BP 133/78
== END 2019-08-09 16:35 | disposition home or self-care (01) ==
LOC: ED 14:07
DX: L03.211 Cellulitis of face (principal); Z88.5 Allergy status to narcotic agent; F17.210 Nicotine dependence, cigarettes, uncomplicated
CPT/HCPCS: 99282; A9270-GY

== ENCOUNTER 2021-01-18 12:24 | Observation (INO) ==
[2021-01-18 12:56] LABS: ABS Eosinophils 0.1 10^3/ul (0-0.6); ABS Lymphocytes 2.3 10^3/ul (1.0-4.8); ABS Monocytes 0.6 10^3/ul (0-0.8); ABS Neutrophils 8.5 10^3/ul (1.5-7.7); Eosinophil % 0.6 %; Hematocrit 38 % (35-47); Hemoglobin 12.8 g/dL (12.0-16.0); Lymphocyte % 20.1 %; Mean Corpuscular HGB Conc 34 g/dL (31-36); Mean Corpuscular Hemoglobin 33 pg (27-31); Mean Corpuscular Volume 98 fL (80-97); Mean Platelet Volume 7.8 fL (7.4-10.4); Platelet Count 219 10^3/uL (150-450); Red Blood Count 3.87 10^6 /uL (3.70-4.87); Red Cell Distribution Width 13 % (10-15); White Blood Count 11.5 10^3/uL (3.5-10.8)
[2021-01-18 13:12] LABS: INR 0.92 (0.86-1.15)
[2021-01-18 13:15] LABS: Albumin 3.9 g/dL (3.2-5.2); Albumin/Globulin Ratio 1.3 (1-3); Calcium 8.6 mg/dL (8.6-10.3); EGFR African American 148.7 (>60); EGFR Non-African American 122.9 (>60); Total Bilirubin 0.2 mg/dL (0.2-1.0); Total Protein 6.9 g/dL (6.4-8.9)
[2021-01-18 13:17] LABS: Troponin I 0.01 ng/mL (<0.03)
[2021-01-18 15:03] LABS: Potassium 4.2 mmol/L (3.5-5.0)
[2021-01-18] MEDS ORDERED: HYDROmorphone 1 MG/1 ML SYRINGE IV ONE (21:07)
[2021-01-18] MEDS ORDERED: Iohexol 300 (CONTRAST) 10 ML SDV IV ONE (22:25)
[2021-01-18] MEDS ORDERED: Lactated Ringers 1000 ml BAG 1,000 ML IV ONE (23:08)
[2021-01-18] MEDS ORDERED: HYDROmorphone 1 MG/1 ML SYRINGE IV SLOW PU ONE (23:45)
[2021-01-19] MEDS ORDERED: Pantoprazole VIAL 40 MG VIAL IV ONE (01:14)
[2021-01-19] MEDS ORDERED: Pantoprazole 80 mg in NS BAG 80 MG/250 ML BAG IV ONE (01:14)
[2021-01-19] MEDS ORDERED: Lactated Ringers 1000 ml BAG 1,000 ML IV ONE (01:55)
[2021-01-19] MEDS ORDERED: Ondansetron 4 mg VIAL 2 MG/ML 2 ml VIAL IV PRN (02:15)
[2021-01-19] MEDS ORDERED: Lorazepam PYXIS KEY PRN (02:17)
[2021-01-19] MEDS: HYDROmorphone 1 MG/1 ML SYRINGE IV SLOW PU PRN ×5 (02:49→20:33)
[2021-01-19] MEDS: LORazepam 2 mg VIAL 1 ml IV PUSH PRN ×2 (05:10→21:44)
[2021-01-19] MEDS ORDERED: Pantoprazole VIAL 40 MG VIAL IV SCH (09:00)
[2021-01-19] MEDS: Sucralfate 1 gm SUSP 1 GM/10 ML UDC PO SCH ×4 (10:01→20:33)
[2021-01-19] MEDS ORDERED: Midazolam 10 mg/10 ml VIAL 1 mg/ml 10 ml VIAL (10 mg) ONE (12:44)
[2021-01-19] MEDS ORDERED: diPHENhydraMINE IV 50 MG/ML 1 ml VIAL (BENADRYL) ONE (12:44)
[2021-01-19] MEDS ORDERED: fentaNYL 100 mcg/2 ml 50 MCG/ML VIAL ONE (12:44)
[2021-01-19] MEDS ORDERED: Fluconazole 400 MG IVPREMIX 400 MG/200 ML BAG IVPB ONE (14:30)
[2021-01-19] MEDS: Nystatin SUSPENSION 100,000 UNITS/ML UDC PO SCH ×2 (17:40→20:32)
[2021-01-20] MEDS: HYDROmorphone 1 MG/1 ML SYRINGE IV SLOW PU PRN ×2 (02:28→06:06)
[2021-01-20] MEDS: Nystatin SUSPENSION 100,000 UNITS/ML UDC PO SCH ×4 (08:41→22:41)
[2021-01-20] MEDS: Sucralfate 1 gm SUSP 1 GM/10 ML UDC PO SCH ×4 (08:41→22:41)
[2021-01-20] MEDS: HYDROmorphone 0.5 MG/0.5 ML SYRINGE IV SLOW PU PRN ×2 (16:43→22:45)
[2021-01-21] MEDS: HYDROmorphone 0.5 MG/0.5 ML SYRINGE IV SLOW PU PRN (05:13)
[2021-01-21] MEDS: Sucralfate 1 gm SUSP 1 GM/10 ML UDC PO SCH ×4 (07:56→20:29)
[2021-01-21] MEDS: Nystatin SUSPENSION 100,000 UNITS/ML UDC PO SCH ×4 (09:19→20:30)
[2021-01-21 12:10] LABS: HIV 4th Generation Nonreactive (Nonreactive)
[2021-01-21] MEDS ORDERED: Prochlorperazine 5 mg/ml 2 ml VIAL (10 mg) IV PRN (23:10)
[2021-01-22] MEDS: Sucralfate 1 gm SUSP 1 GM/10 ML UDC PO SCH ×3 (07:58→17:14)
[2021-01-22] MEDS: Nystatin SUSPENSION 100,000 UNITS/ML UDC PO SCH ×3 (09:21→17:14)
[2021-01-22 10:54] LABS: ABS Eosinophils 0.1 10^3/ul (0-0.6); ABS Lymphocytes 2.2 10^3/ul (1.0-4.8); ABS Monocytes 0.6 10^3/ul (0-0.8); ABS Neutrophils 3.9 10^3/ul (1.5-7.7); Eosinophil % 1.6 %; Hematocrit 37 % (35-47); Hemoglobin 12.2 g/dL (12.0-16.0); Lymphocyte % 31.7 %; Mean Corpuscular HGB Conc 33 g/dL (31-36); Mean Corpuscular Hemoglobin 33 pg (27-31); Mean Corpuscular Volume 100 fL (80-97); Mean Platelet Volume 7.8 fL (7.4-10.4); Nucleated Red Blood Cells % 0.1; Platelet Count 224 10^3/uL (150-450); Red Blood Count 3.72 10^6 /uL (3.70-4.87); Red Cell Distribution Width 13 % (10-15); White Blood Count 6.8 10^3/uL (3.5-10.8)
[2021-01-22 16:07] VITALS: BP 100/56
== END 2021-01-22 17:20 | disposition home or self-care (01) ==
LOC: ED 12:24 → SSU 12:24 → SUATTDRO 01-19 02:15 → SSU 01-19 06:24
PROVIDERS: ADMIT Student in an Organized Health Care Education/Training Program; ATTEND Hospitalist

== ENCOUNTER 2021-06-25 07:45 | Observation (INO) ==
[2021-06-25 08:18] LABS: ABS Basophils 0.1 10^3/ul (0-0.2); ABS Monocytes 0.4 10^3/ul (0-0.8); ABS Neutrophils 3.2 10^3/ul (1.5-7.7); Eosinophil % 0.7 %; Hematocrit 41 % (35-47); Hemoglobin 13.9 g/dL (12.0-16.0); Lymphocyte % 44.9 %; Mean Corpuscular HGB Conc 34 g/dL (31-36); Mean Corpuscular Hemoglobin 34 pg (27-31); Mean Corpuscular Volume 100 fL (80-97); Mean Platelet Volume 7.5 fL (7.4-10.4); Nucleated Red Blood Cells % 0.1; Platelet Count 299 10^3/uL (150-450); Red Blood Count 4.04 10^6 /uL (3.70-4.87); Red Cell Distribution Width 14 % (10-15); White Blood Count 6.7 10^3/uL (3.5-10.8)
[2021-06-25 08:27] LABS: Albumin 4.5 g/dL (3.2-5.2); CO2 Carbon Dioxide 20 mmol/L (22-32); Calcium 9.5 mg/dL (8.6-10.3); Chloride 102 mmol/L (101-111); Sodium 133 mmol/L (135-145)
[2021-06-25 08:33] LABS: ALT 9 U/L (7-52); Albumin/Globulin Ratio 1.3 (1-3); Alkaline Phosphatase 58 U/L (35-149); Blood Urea Nitrogen 15 mg/dL (6-24); Globulin 3.5 g/dL (2-4); Glucose 97 mg/dL (70-100); eGFR CKD-EPI 109.8 (>60)
[2021-06-25 10:06] LABS: Anion Gap 11 mmol/L (2-11)
[2021-06-25] MEDS ORDERED: Morphine 4 MG/ML VIAL (1 ml) IV ONE (10:09)
[2021-06-25 13:06] LABS: Potassium Redraw 3.9 mmol/L (3.5-5.0)
[2021-06-25] MEDS ORDERED: oxyCODONE SR 20 mg TAB PO ONE (15:00)
[2021-06-25] MEDS ORDERED: Al Hydrox/Mg Hydrox/Simet LIQ 30 ML UDC PO ONE (19:22)
[2021-06-25 20:07] LABS: Erythrocyte Sed Rate 6 mm/Hr (0-29)
[2021-06-25 20:23] LABS: CRP High Sensitivity 2.66 mg/L (<2.00)
[2021-06-25] MEDS ORDERED: Enoxaparin 40 MG/0.4 ML SYR SUBCUT SCH (21:00)
[2021-06-25] MEDS: Morphine 2 MG/ML SYRINGE IV PRN (22:38)
[2021-06-26] MEDS ORDERED: Al Hydrox/Mg Hydrox/Simet LIQ 30 ML UDC PO PRN (00:32)
[2021-06-26 01:26] LABS: Troponin I 0.02 ng/mL (<0.03)
[2021-06-26] MEDS: Nitro 2% OINT (Nitroglycerin) 1 INCH/PAK TOPICAL SCH ×3 (02:52→14:21)
[2021-06-26] MEDS ORDERED: Acetaminophen IV 1 GM/100ML 100 ML IV PRN (04:08)
[2021-06-26] MEDS: Morphine 2 MG/ML SYRINGE IV PRN ×3 (04:25→14:45)
[2021-06-26 05:54] LABS: ABS Eosinophils 0.1 10^3/ul (0-0.6); ABS Lymphocytes 2.3 10^3/ul (1.0-4.8); ABS Monocytes 0.4 10^3/ul (0-0.8); ABS Neutrophils 2.4 10^3/ul (1.5-7.7); Eosinophil % 1.4 %; Hematocrit 37 % (35-47); Hemoglobin 12.7 g/dL (12.0-16.0); Mean Corpuscular HGB Conc 34 g/dL (31-36); Mean Corpuscular Hemoglobin 34 pg (27-31); Mean Corpuscular Volume 98 fL (80-97); Mean Platelet Volume 7.4 fL (7.4-10.4); Nucleated Red Blood Cells % 0.2; Platelet Count 272 10^3/uL (150-450); Red Cell Distribution Width 14 % (10-15); White Blood Count 5.3 10^3/uL (3.5-10.8)
[2021-06-26 06:06] LABS: INR 0.99 (0.86-1.15)
[2021-06-26 06:11] LABS: Calcium 8.9 mg/dL (8.6-10.3); HDL Cholesterol 53.1 mg/dL; Potassium 4.3 mmol/L (3.5-5.0); eGFR CKD-EPI 105.4 (>60)
[2021-06-26] MEDS ORDERED: diPHENhydraMINE 25 mg TAB PO PRN (09:03)
[2021-06-26] MEDS ORDERED: Metoclopramide 5 MG/ML VIAL (10 mg) IV PRN (09:04)
[2021-06-26] MEDS ORDERED: oxyCODONE SR 20 mg TAB PO PRN (09:13)
[2021-06-26] MEDS ORDERED: Regadenoson 0.4 MG/5 ML SYRINGE ONE (13:01)
[2021-06-26] MEDS ORDERED: Aminophylline 25 MG/ML VIAL ONE (13:02)
[2021-06-26 16:23] VITALS: BP 118/63
[2021-06-26] MEDS ORDERED: Nitro 2% OINT (Nitroglycerin) 1 INCH/PAK TOPICAL SCH (19:23)
== END 2021-06-26 17:10 | disposition home or self-care (01) ==
LOC: EDHOLD 07:45 → ED 07:45 → SUATTDRO 19:19 → MEDTELE 22:03
PROVIDERS: ADMIT Nurse Practitioner Family; ATTEND Student in an Organized Health Care Education/Training Program